=== PATIENT | female | born 1960 | race African-American/Black ===

== ENCOUNTER 2017-08-15 10:47 | Day surgery (SDC) | payer OTHER ==
[2017-08-13 16:26] VITALS: BMI 30.9
--- NOTE | 2017-08-15 12:10 | HP ---
Satellite [facility] - Chief Complaint Chief Complaint: right shoulder pain - Past Medical History Allergies/Adverse Reactions: Allergies Allergy/AdvReac Type Severity Reaction Status Date / Time No Known Allergies Allergy Verified 08/15/17 11:10 ...LMP: 08/23/15 ...LMP Comment: 06/2016 - Current Medications Current Medications: Home Medications Medication Instructions Recorded Albuterol Sulfate [Proair Hfa -] 1 - 2 inh PO PRN PRN 09/08/15 Metformin HCl [Glucophage] 1,000 mg PO DAILY 09/08/15 Albuterol Sulfate [Proair 90 mcg IH PRN PRN 08/13/17 Respiclick] Metoprolol Succinate [Toprol Xl] 100 mg PO DAILY 08/13/17 Sitagliptin Phosphate [Januvia] 100 mg PO DAILY 08/13/17 Hydrocodone/Acetaminophen [[place] 1 each PO Q6H PRN #40 tablet MDD 4 08/15/17 5-325 Tablet] Telmisartan/Hydrochlorothiazid 1 each PO DAILY 08/15/17 [Micardis Hct 80-25 mg Tablet] Satellite Physical Exam - Physical Examination Vital Signs: Vital Signs Period Temp Pulse Resp BP Sys/Jarrett Pulse Ox Last 24 Hr 97.3 F 87 16 141/91 99 General Appearance: Well Nourished, Well Developed, Alert & Oriented x3 ENT: Clear Lung: Normal air movement Heart: Regular rate & rhythm Extremities: Other (right shoulder- + ttp ,decr rom, + empty can, + neer, + bradley, nvi MRI + rct) Neurological: Intact, Alert, Oriented Satellite Impression/Plan - Impression/Plan Impression: right shoulder rct Operative Procedure: right shoulder arthroscopy with SAD and possible RCR Date to be Performed: 08/15/17
[2017-08-15] MEDS ORDERED: ROPIVACAINE HCL 0.5% 30ML VIAL ONE (13:20)
[2017-08-15] MEDS ORDERED: MIDAZOLAM HCL 2 MG/2 ML SINGLE DOSE VIAL ONE ×3 (13:25→14:38)
[2017-08-15] MEDS ORDERED: PROPOFOL 20 ML ONE (14:38)
[2017-08-15] MEDS ORDERED: ceFAZolin SODIUM 1 GM VIAL IVPB ONE (14:45)
[2017-08-15] MEDS ORDERED: ceFAZolin SODIUM 1 GM VIAL ONE (14:58)
--- NOTE | 2017-08-15 16:10 | OP ---
Operative Note - Note: Operative Date: 08/15/17 ([facility]) Pre-Operative Diagnosis: right shoulder rct Operation: right shoulder arthroscopy with RCR, SAD Implants: 2 arthrex swivelocks Post-Operative Diagnosis: Same as Pre-op Surgeon: Nasim Marquis Spanish Interpreter/Translator: Bradley De Guzman Anesthesiologist/ORAL SURGERY TECHNICIAN: Miguel Angel Cardona Anesthesia: General, Local Specimens Removed: shavings Estimated Blood Loss (mls): 5 Operative Report Dictated: Yes
[2017-08-15] MEDS ORDERED: oxyCODONE HCL 5 MG TABLET PO PRN (16:56)
[2017-08-15] MEDS ORDERED: PROMETHAZINE HCL 25 MG/1 ML VIAL IVPUSH PRN (16:56)
[2017-08-15] MEDS ORDERED: ONDANSETRON 4 MG/2 ML VIAL IVPUSH PRN (16:56)
[2017-08-15] MEDS ORDERED: LACTATED RINGERS SOLUTION 1,000 ML IV SCH (17:00)
[2017-08-15 17:33] VITALS: BP 141/76; PULSE 76
[2017-08-15 17:34] VITALS: TEMP 97.6
--- NOTE | 2017-08-16 07:23 | OP ---
DATE OF OPERATION: 08/15/2017 PREOPERATIVE DIAGNOSES: Right shoulder impingement syndrome and rotator cuff tear. POSTOPERATIVE DIAGNOSES: Right shoulder impingement syndrome and rotator cuff tear. PROCEDURE: Right shoulder arthroscopy, subacromial decompression and arthroscopic rotator cuff repair. SURGEON: Nasim Marquis MD FACS TEACHER: ABDULLAHI Dominique ANESTHESIOLOGIST: Miguel Angel Cardona MD ANESTHESIA: Right interscalene block and LMA anesthesia. DRAINS: None. COMPLICATIONS: None. FLUID REPLACEMENT: 1000 mL. SPECIMEN: Arthroscopic shavings. BLOOD LOSS: Minimal. BLOOD GIVEN: None. This patient is a 56-year-old female with the preoperative diagnoses of right shoulder impingement syndrome and rotator cuff tear. After understanding the potential risks, complications, alternatives and benefits of surgical versus nonsurgical treatment, the patient elected to undergo this procedure. Patient was brought to the operating room, peripheral IV was placed and IV sedation given. Ancef 1 g IV was given. LMA anesthesia was induced. She was placed into the beach-chair position with ample padding throughout. The right upper extremity was prepped and draped in sterile fashion. The bony landmarks were marked out with a marking pen and the posterior portal established. Diagnostic arthroscopy was performed. The glenohumeral joint looked good. There was no arthritis. The labrum looked good. The biceps tendon looked good and the undersurface of the rotator cuff looked good. Next, our attention turned to the subacromial space. Patient had an unbelievable amount of subacromial inflammatory bursitis. An extensive debridement was done with the ArthroCare wand and a shaver. This revealed a large-sized subacromial spur and a small distal clavicle spur. Both were removed with a 5.5-mm oval bur and the debris removed with the shaver. The acromioplasty was fine tuned with the shaver. Overall, this created a lot of space and once the bursectomy was completed this revealed a complete full-thickness tear of the rotator cuff. It was relatively small, about 2 inches in the AP plane, and crescent shaped. The landing bed was debrided with the shaver. Arthroscopically, the [employer] needle passer was used to pass 2 FiberTapes. They were put down through 2 Arthrex SwiveLocks and arthroscopically the rotator cuff repair was completed. It came down quite nicely. There were 2 FiberTapes in a horizontal mattress in place for 4 points of fixation that moved as a unit with the humerus and overall it looked quite good. The area was copiously irrigated and washed out and portals closed with 3-0 nylon suture and covered with Aquacel. The patient was placed into a shoulder immobilizer. Total operative time was about 50 minutes. The patient was extubated. There were no complications during the case. The patient tolerated the procedure well and was brought to ambulatory recovery in stable condition. William [id number]
--- NOTE | 2017-08-22 17:15 | PATH ---
Surgical Pathology Report Patient Name: JR ANDUJAR [facility]. Rec. #: [id number] /Age/Gender: 1960 (Age: 56) / F Account: [id number] Location: [facility] SURGICAL Taken: 08/15/2017 Received: 08/16/2017 Reported: 08/22/2017 Physicians: Nasim Marquis M.D. Specimen(s) Received SHAVINGS RIGHT SHOULDER Clinical History Right shoulder impingement syndrome Final Diagnosis SHOULDER, RIGHT, ARTHROSCOPIC SHAVINGS: FIBROSYNOVIAL TISSUE, CARTILAGE, BONE AND SKELETAL MUSCLE. Electronically Signed Rachana aClvert M.D. Gross Description Received in formalin, labeled "right shoulder shavings," is a 4.5 x 4.0 x 0.4 cm. aggregate of santos-yellow soft tissue fragments. A international sales representative portion is submitted in one cassette. 08/16/201708/16/2017
== END 2017-08-15 18:58 | disposition home or self-care (01) ==
LOC: JASU-SURG 10:47
PROVIDERS: ATTEND Orthopaedic Surgery
PROC: 0LQ14ZZ Repair Right Shoulder Tendon, Percutaneous Endoscopic Approach (ICD-10-PCS; principal; 2017-08-15 13:00)
PROC: 0RNJ4ZZ Release Right Shoulder Joint, Percutaneous Endoscopic Approach (ICD-10-PCS; 2017-08-15 13:00)
DX: M75.41 Impingement syndrome of right shoulder (principal); M75.101 Unspecified rotator cuff tear or rupture of right shoulder, not specified as traumatic
CPT/HCPCS: 82962; 88304-TC; 94760

== ENCOUNTER 2018-07-10 23:15 | Emergency (ER) | payer OTHER ==
[2018-07-10 23:19] VITALS: BP 180/90; PULSE 90; TEMP 98.3; BMI 31.7
--- NOTE | 2018-07-10 23:53 | PDOC ---
History of Present Illness - General Chief Complaint: Pain, Acute Stated Complaint: LEFT FOOT PAIN Time Seen by Provider: 07/10/18 23:52 History Source: Patient Exam Limitations: No Limitations - History of Present Illness Initial Comments: 07/10/18 23:54 57YOF with h/o HTN, HLD, NIDDM (on metformin), and diabetic neuropathy who p/w left foot pain and new onset inability to bear weight since 2 pm (about the past 10 hours). She describes the pain as sharp and shooting, like her prior diabetic neuropathy, and it is located on the top of the left foot. She has had similar pain before but it usually goes away within a couple of hours. This pain has been constant since 2 pm despite taking 800 mg ibuprofen at 6 pm. 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 She is concerned that she cannot go to work if she is unable to bear weight. Denies f/c/n/v/d/c, chest pain, SOB, abdominal pain, back pain, neck pain, HUERTA, lightheadedness, dizziness, new n/t/w (though does struggle with chronic tingling and numbness in the BLE). Denies any recent falls or injuries. Past History - Past Medical History Allergies/Adverse Reactions: Allergies Allergy/AdvReac Type Severity Reaction Status Date / Time No Known Allergies Allergy Verified 07/10/18 23:19 Home Medications: Ambulatory Orders Albuterol Sulfate [Proair Hfa -] 1 - 2 inh PO PRN PRN 09/08/15 Metformin HCl [Glucophage] 1,000 mg PO DAILY 09/08/15 Albuterol Sulfate [Proair Respiclick] 90 mcg IH PRN PRN 08/13/17 Metoprolol Succinate [Toprol Xl] 100 mg PO DAILY 08/13/17 Sitagliptin Phosphate [Januvia] 100 mg PO DAILY 08/13/17 Hydrocodone/Acetaminophen [[place] 5-325 Tablet] 1 each PO Q6H PRN #40 tablet MDD 4 08/15/17 Telmisartan/Hydrochlorothiazid [Micardis Hct 80-25 mg Tablet] 1 each PO DAILY Anemia: No Asthma: No Cancer: No Cardiac Disorders: No CVA: No COPD: No CHF: No Dementia: No Diabetes: Yes GI Disorders: No Disorders: No HTN: Yes Hypercholesterolemia: Yes Liver Disease: No Seizures: No Thyroid Disease: No - Surgical History Abdominal Surgery: Yes (HERNIA) Appendectomy: No Cardiac Surgery: No Cholecystectomy: No Lung Surgery: No Neurologic Surgery: No Orthopedic Surgery: Yes (wrist 2016) - Immunization History Immunization Up to Date: Yes - Suicide/Smoking/Psychosocial Hx Smoking Status: No Smoking History: Never smoked Have you smoked in the past 12 months: No Number of Cigarettes Smoked Daily: 0 Information on smoking cessation initiated: No Hx Alcohol Use: No Drug/Substance Use Hx: No Substance Use Type: None Review of Systems - Review of Systems Able to Perform ROS?: Yes Comments:: 07/11/18 00:10 GEN: no fever, chills, malaise, generalized weakness, or weight change HEENT: no ear pain, sore throat, vision change, or eye pain CV: no chest pain, palpitations, lightheadedness, syncope, or edema RESP: no cough, wheezing, or SOB GI: no abdominal pain, nausea, vomiting, diarrhea, constipation, or white/black/ bloody stool : no dysuria, hematuria, incontinence, retention, bleeding, or discharge MSK: left foot pain, inability to walk, otherwise no neck/back pain, muscle weakness/pain, or joint swelling/pain NEURO: no headache, seizure, vertigo, numbness, tingling, or focal weakness PSYCH: no substance use, no behavior change SKIN: no jaundice, no rash ROS otherwise negative except as noted in HPI *Physical Exam - Vital Signs Last Vital Signs Temp Pulse Resp BP Pulse Ox 98.3 F 90 20 180/90 H 99 07/10/18 23:16 07/10/18 23:16 07/10/18 23:16 07/10/18 23:16 07/10/18 23:16 - Physical Exam Comments: 07/11/18 00:21 GENERAL: well-appearing, A/Ox4, no distress, answers questions appropriately, generally comfortable appearing but winces occasionally with repositioning of the left foot HEENT: PERRLA, EOMI, moist mucous membranes NECK/BACK: no midline ttp, no spinal stepoff or deformity, no hematoma, full ROM , neck supple CARDIOVASCULAR: regular rate/rhythm, normal S1S2, no MGR, strong peripheral pulses, capillary refill <2 seconds, extremities wwp, no edema LUNGS/RESPIRATORY: no respiratory distress, CTAB GI/ABDOMEN: symmetric psfc-vw-vllc, normoactive BS, soft, no ttp, no midline pulsatile masses : no CVA tenderness EXTREMITIES: no muscle atrophy, no acute deformity, no edema, no palpable cords BLE, no calf ttp or swelling, left foot DP pulse intact and 2+, no tenderness to light palpation of the foot dorsum, no additional ttp of the foot, ankle, or distal lower leg, mild decreased sensation to all LLE digits, motor intact, full ROM foot and ankle SKIN: warm and dry, no pallor, no jaundice, no rash, no bruising, no skin breakdown, no cuts, no lesions NEUROLOGICAL: GCS 15, CN II-XII grossly intact, 5/5 strength proximally and distally, no facial droop, decreased BLE sensation of digits Moderate Sedation - Procedure Monitoring Vital Signs: Procedure Monitoring Vital Signs Temperature 98.3 F 07/10/18 23:16 Pulse Rate 90 07/10/18 23:16 Respiratory Rate 20 07/10/18 23:16 Blood Pressure 180/90 H 07/10/18 23:16 O2 Sat by Pulse Oximetry (%) 99 07/10/18 23:16 Medical Decision Making - Medical Decision Making 07/11/18 00:31 Pt p/w foot pain worsening since an injury to the area. Initial Vital Signs Temp Pulse Resp BP Pulse Ox 98.3 F 90 20 180/90 H 99 07/10/18 23:16 07/10/18 23:16 07/10/18 23:16 07/10/18 23:16 07/10/18 23:16 Exam: See Physical Exam section for full exam; pain in malleolar zone, tenderness edge of lateral and medial malleolus, inability to walk 4 steps for exam. DDX IBNLT: most likely neuropathic pain (e.g. diabetic neuropathy), less likely sprain/strain given lack of any mechanism of injury, very unlikely any of the following: contusion, blood vessel injury, nerve injury, foot fracture/ dislocation, tendon or ligament rupture/tear, etc. Also very unlikely DVT given lack of palpable cord, leg tenderness or swelling, lack of exogenous hormones, etc. W/U ordered: None at this time TX ordered: Tylenol, gabapentin 07/11/18 01:39 Patient ambulated to the bathroom with cane, no issues but ambulating slowly. States still has pain, ordered is 30 mg Toradol IM. She is on her feet all the time at work, possible stress fxr, ordered is foot XR. 07/11/18 02:52 Foot XR without any obvious acute abnormality. DISCHARGE Patient is instructed to use RICE therapy and OTC analgesics. Workup is not concerning for emergency-level pathology at this time. The Pt is appropriate for discharge with close outpatient follow up. They are comfortable with this plan and will follow up with their primary care provider in 1-3 days. Orthopedist referral information is given for her ortho provider (Dr. Marquis). Specific return precautions are discussed and they will come back to the ER if necessary. *DC/Admit/Observation/Transfer Diagnosis at time of Disposition: Foot pain, left - Discharge Dispostion Condition at time of disposition: Stable Decision to Admit order: No - Referrals Referrals: Mireya Cook MD [Primary Care Provider] - Nasim Marquis MD [Staff Physician] - - Patient Instructions Printed Discharge Instructions: DI for Foot Pain Additional Instructions: You were seen in the ER for foot pain. We did an exam and imaging studies, and found no abnormalities with the bones. We gave you medications for the pain. After our assessment, we do not believe you are having a medical emergency at this time, and we believe you are safe to go home. Please follow up with your primary care provider in 1-3 days. Call their clinic, tell them you were seen in the ER, and tell them you need a follow-up. We are also providing information for your orthopedist, Dr. Marquis, in case you need to contact him. If you have any new or worsening symptoms (especially worsening foot pain, inability to walk with a cane, skin changes, etc) please come back to the ER at any time (24 hours a day). If you are having severe or life threatening symptoms , or symptoms that make it unsafe to drive or have someone drive you, please call 911. Follow up with your PCP by Sunday this week. Take Tylenol and Motrin for the pain. Use RICE therapy (rest, ice, compression, elevation). Use your cane as needed to walk. - Post Discharge Activity Forms/Work/School Notes: Back to Work
[2018-07-11] MEDS ORDERED: ACETAMINOPHEN 500 MG TABLET (FP) PO ONE (00:17)
[2018-07-11] MEDS ORDERED: GABAPENTIN 300 MG CAPSULE (FP) PO ONE (00:17)
--- NOTE | 2018-07-11 00:59 | PDOC ---
Attending Attestation - Resident Resident Name: JefeDaylin - ED Attending Attestation I have performed the following: I have examined & evaluated the patient, The case was reviewed & discussed with the resident, I agree w/resident's findings & plan, Exceptions are as noted - HPI HPI: 07/11/18 01:00 57F pmh DM c/b neuropathy, HTN, HLD here with acute exacerbation of her neuropathic px. Pt states that it is usually episodic with spontaneous improvement of pain. Today, the px has been persistent and causing difficulty with ambulation. Character of the px is o/w same as prior episodes. - Physicial Exam PE: 07/11/18 01:02 Agree with exam as documented by resident - Medical Decision Making 07/11/18 01:02 No hx or exam findings consistent with trauma, infectious etiology unlikely, no s/sx of clot consistent with neuropathic px f/u analgesia 07/11/18 03:30 Pain improved after tx dc with pcp f/u
[2018-07-11] MEDS ORDERED: KETOROLAC TROMETHAMINE 30 MG/1 ML VIAL IM ONE (01:39)
[2018-07-11] MEDS ORDERED: ACETAMINOPHEN 325 MG TABLET (FP) ONE (02:04)
[2018-07-11] MEDS ORDERED: GABAPENTIN 100 MG CAPSULE (FP) ONE (02:04)
[2018-07-11] MEDS ORDERED: KETOROLAC TROMETHAMINE 30 MG/1 ML VIAL ONE (02:04)
== END 2018-07-11 03:19 | disposition home or self-care (01) ==
LOC: JER 23:15
PROC: 3E0233Z Introduction of Anti-inflammatory into Muscle, Percutaneous Approach (ICD-10-PCS; principal; 2018-07-10)
DX: M79.2 Neuralgia and neuritis, unspecified (principal); E11.40 Type 2 diabetes mellitus with diabetic neuropathy, unspecified; Z79.84 Long term (current) use of oral hypoglycemic drugs; I10 Essential (primary) hypertension; E78.5 Hyperlipidemia, unspecified
CPT/HCPCS: 73630-TC-LT; 99281-25

== ENCOUNTER 2019-01-22 23:08 | Emergency (ER) | payer OTHER ==
[2019-01-22 23:18] VITALS: BP 140/77; PULSE 100; TEMP 100.5; BMI 30.9
[2019-01-22] MEDS ORDERED: ACETAMINOPHEN 325 MG TABLET (FP) PO ONE (23:29)
[2019-01-22] MEDS ORDERED: ACETAMINOPHEN 325 MG TABLET (FP) ONE (23:44)
--- NOTE | 2019-01-22 23:48 | PDOC ---
History of Present Illness - General Chief Complaint: Cold Symptoms Stated Complaint: SORE THROAT Time Seen by Provider: 01/22/19 23:20 History Source: Patient Exam Limitations: No Limitations Past History - Past Medical History Allergies/Adverse Reactions: Allergies Allergy/AdvReac Type Severity Reaction Status Date / Time No Known Allergies Allergy Verified 07/10/18 23:19 Home Medications: Ambulatory Orders Albuterol Sulfate [Proair Hfa -] 1 - 2 inh PO PRN PRN 09/08/15 Metformin HCl [Glucophage] 1,000 mg PO DAILY 09/08/15 Albuterol Sulfate [Proair Respiclick] 90 mcg IH PRN PRN 08/13/17 Metoprolol Succinate [Toprol Xl] 100 mg PO DAILY 08/13/17 Sitagliptin Phosphate [Januvia] 100 mg PO DAILY 08/13/17 Hydrocodone/Acetaminophen [[place] 5-325 Tablet] 1 each PO Q6H PRN #40 tablet MDD 4 08/15/17 Telmisartan/Hydrochlorothiazid [Micardis Hct 80-25 mg Tablet] 1 each PO DAILY Anemia: No Asthma: No Cancer: No Cardiac Disorders: No CVA: No COPD: No CHF: No Dementia: No Diabetes: Yes GI Disorders: No Disorders: No HTN: Yes Hypercholesterolemia: Yes Liver Disease: No Seizures: No Thyroid Disease: No - Surgical History Abdominal Surgery: Yes (HERNIA) Appendectomy: No Cardiac Surgery: No Cholecystectomy: No Lung Surgery: No Neurologic Surgery: No Orthopedic Surgery: Yes (2015) - Immunization History Immunization Up to Date: Yes - Suicide/Smoking/Psychosocial Hx Smoking Status: No Smoking History: Unknown if ever smoked Have you smoked in the past 12 months: No Number of Cigarettes Smoked Daily: 0 Information on smoking cessation initiated: No Hx Alcohol Use: No Drug/Substance Use Hx: No Substance Use Type: None *Physical Exam - Vital Signs Last Vital Signs Temp Pulse Resp BP Pulse Ox 100.5 F H 100 H 16 140/77 100 01/22/19 23:16 01/22/19 23:16 01/22/19 23:16 01/22/19 23:16 01/22/19 23:16 - Physical Exam General Appearance: No: Apparent Distress HEENT: positive: Normal ENT Inspection, Pharynx Normal Respiratory/Chest: positive: Lungs Clear, Normal Breath Sounds. negative: Respiratory Distress Cardiovascular: positive: Regular Rhythm, Regular Rate, S1, S2. negative: Murmur Gastrointestinal/Abdominal: positive: Normal Bowel Sounds, Soft. negative: Tender, Distended, Guarding, Rebound Integumentary: positive: Normal Color Neurologic: positive: Alert, Normal Mood/Affect ED Treatment Course - RADIOLOGY Radiology Studies Ordered: Category Date Time Status CHEST PA & LAT [RAD] Stat Radiology 01/22/19 23:30 Ordered - Medications Given in the ED: ED Medications Discontinued Medications Generic Name Dose Route Start Last Admin Trade Name Freq PRN Reason Stop Dose Admin Acetaminophen 975 mg 01/22/19 23:29 01/22/19 23:46 Tylenol - PO 01/22/19 23:30 975 mg ONCE ONE Administration Medical Decision Making - Medical Decision Making 58 y/o F hx of HTN, HLD, DM presents with fever, chills, body aches, sore throat , productive cough, rhinorrhea and congestion from yesterday. 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 Denies recent travel. Has not taken anything for fever yet. Denies sob, cp, abd pain, n/v/d, urinary complaints. Consider viral URI vs PNA No concern for strep pharyngitis based on exam Plan: Tylenol, CXR 01/22/19 23:47 CXR negative with no evidence of PNA Likely viral URI Repeat temp 99.1 01/23/19 00:21 *DC/Admit/Observation/Transfer Diagnosis at time of Disposition: Viral URI - Discharge Dispostion Disposition: HOME Condition at time of disposition: Stable Decision to Admit order: No - Referrals Referrals: Mireya Cook MD [Primary Care Provider] - 2 Days - Patient Instructions Printed Discharge Instructions: DI for Viral Upper Respiratory Infection -- Adult Additional Instructions: Thank you for choosing [facility]. It was a pleasure taking care of you. Your chest xray was normal Take Tylenol or Motrin as needed for fever Follow-up with your doctor in 2 days Return to the Emergency Department if your symptoms worsen or persist or have other concerning symptoms. - Post Discharge Activity
--- NOTE | 2019-01-22 23:50 | PDOC ---
*Physical Exam - Vital Signs Last Vital Signs Temp Pulse Resp BP Pulse Ox 100.5 F H 100 H 16 140/77 100 01/22/19 23:16 01/22/19 23:16 01/22/19 23:16 01/22/19 23:16 01/22/19 23:16 ED Treatment Course - Medications Given in the ED: ED Medications Discontinued Medications Generic Name Dose Route Start Last Admin Trade Name [place] PRN Reason Stop Dose Admin Acetaminophen 975 mg 01/22/19 23:29 01/22/19 23:46 Tylenol - PO 01/22/19 23:30 975 mg ONCE ONE Administration Medical Decision Making - Medical Decision Making 01/22/19 23:50 Patient seen by the advanced practice provider under my direct supervision. Ancillary testing reviewed as necessary. I agree with plan as outlined by the advanced practice provider. *DC/Admit/Observation/Transfer Diagnosis at time of Disposition: Viral URI - Discharge Dispostion Disposition: HOME Condition at time of disposition: Stable - Referrals Referrals: Mireya Cook MD [Primary Care Provider] - 2 Days - Patient Instructions Printed Discharge Instructions: DI for Viral Upper Respiratory Infection -- Adult Additional Instructions: Thank you for choosing [facility]. It was a pleasure taking care of you. Your chest xray was normal Take Tylenol or Motrin as needed for fever Follow-up with your doctor in 2 days Return to the Emergency Department if your symptoms worsen or persist or have other concerning symptoms. - Post Discharge Activity Forms/Work/School Notes: Back to Work
== END 2019-01-23 00:30 | disposition home or self-care (01) ==
LOC: JER 23:08
DX: J06.9 Acute upper respiratory infection, unspecified (principal); I10 Essential (primary) hypertension; E78.5 Hyperlipidemia, unspecified; E11.9 Type 2 diabetes mellitus without complications
CPT/HCPCS: 71046-TC-FY; 99281-25

== ENCOUNTER 2021-01-06 12:15 | Emergency (ER) | payer OTHER ==
[2021-01-06 12:31] VITALS: BP 148/87; PULSE 78; TEMP 98.2; BMI 32.4
[2021-01-06] MEDS ORDERED: DIPHTH,PERTUSS(ACELL),TET 0.5 ML DISP.SYRIN IM ONE ×2 (12:56→12:59)
[2021-01-06] MEDS ORDERED: IBUPROFEN 600 MG TABLET (FP) PO ONE ×2 (12:56→12:58)
== END 2021-01-06 14:00 | disposition home or self-care (01) ==
LOC: JERFT 12:15
PROC: 3E0234Z Introduction of Serum, Toxoid and Vaccine into Muscle, Percutaneous Approach (ICD-10-PCS; principal; 2021-01-06)
DX: M25.512 Pain in left shoulder (principal); M25.562 Pain in left knee; M79.675 Pain in left toe(s)
CPT/HCPCS: 73030-TC-LT-FY; 73562-TC-LT-FY; 73630-TC-LT; 90715; 99284-25

== ENCOUNTER 2021-02-26 21:16 | Emergency (ER) | payer OTHER ==
[2021-02-26 21:21] VITALS: BP 166/97; TEMP 98.5; BMI 30.9
[2021-02-26 21:22] VITALS: PULSE 81
[2021-02-26] MEDS ORDERED: IBUPROFEN 600 MG TABLET (FP) PO ONE ×2 (22:43→22:48)
== END 2021-02-26 22:53 | disposition home or self-care (01) ==
LOC: JERFT 21:16
DX: M25.562 Pain in left knee (principal); W01.0XXA Fall on same level from slipping, tripping and stumbling without subsequent striking against object, initial encounter; Y04.0XXA Assault by unarmed brawl or fight, initial encounter; Y92.10 Unspecified residential institution as the place of occurrence of the external cause
CPT/HCPCS: 73562-TC-LT-FY; 99283-25

== ENCOUNTER 2022-07-14 16:40 | Emergency (ER) | payer OTHER ==
[2022-07-14 16:50] VITALS: BP 137/75; PULSE 116; RESP 18; TEMP 101.6; BMI 30.9
[2022-07-14] MEDS ORDERED: ACETAMINOPHEN 500 MG TABLET (FP) PO ONE (16:50)
== END 2022-07-14 18:47 | disposition home or self-care (01) ==
LOC: JER 16:40
DX: J06.9 Acute upper respiratory infection, unspecified (principal)
CPT/HCPCS: 0241U-QW; 99283-25

== ENCOUNTER 2022-07-22 21:46 | Emergency (ER) | payer OTHER ==
[2022-07-22 22:06] VITALS: BP 143/84; PULSE 80; RESP 18; TEMP 99.9; BMI 30.9
[2022-07-22] MEDS ORDERED: SODIUM CHLORIDE 0.9% 500 ML INFUS.BAG IV ONE (22:32)
[2022-07-22] MEDS ORDERED: ONDANSETRON 4 MG/2 ML VIAL IVPB ONE (22:32)
[2022-07-22] MEDS ORDERED: DEXAMETHASONE SOD PHOSPHATE 20 MG/5 ML VIAL IVPB ONE (22:32)
[2022-07-22] MEDS ORDERED: ACETAMINOPHEN 1000 MG/100 ML BAG IVPB ONE (22:34)
[2022-07-22] MEDS ORDERED: ACETAMINOPHEN INJECTION 100 ML IVPB ONE (22:35)
[2022-07-22] MEDS ORDERED: DEXAMETHASONE SOD PHOSPHATE 10 MG/1 ML VIAL ONE (22:35)
[2022-07-22] MEDS ORDERED: ONDANSETRON 4 MG/2 ML VIAL ONE (22:35)
[2022-07-22] MEDS: ALBUTEROL SO4 2.5/IPRATROPIUM 0.5 INH SOL 3 ML VIAL.NEB. NEB SCH ×2 (22:42→22:57)
[2022-07-22 23:00] LABS: BASO % 1.3 % (0-2.0); EOS % 1.2 % (0-4.5); HEMATOCRIT 39.4 % (32.4-45.2); HEMOGLOBIN 12.8 GM/dL (10.7-15.3); LYMPH % 43.2 % (8-40); MCH 29.7 pg (25.7-33.7); MCHC 32.6 g/dl (32.0-36.0); MEAN CELL VOLUME 91.1 fl (80-96); MEAN PLT VOLUME 7.8 fl (7.5-11.1); MONO % 10.5 % (3.8-10.2); NEUT % 43.8 % (42.8-82.8); PLATELET COUNT 414 10^3/uL (134-434); RBC 4.32 M/mm3 (3.60-5.2); RDW 13.9 % (11.6-15.6); WHITE BLOOD COUNT 4.9 K/mm3 (4.0-10.0)
[2022-07-22 23:35] LABS: ALBUMIN 3.4 g/dl (3.4-5.0); CALCIUM 9.5 mg/dL (8.5-10.1)
[2022-07-22 23:36] LABS: BLOOD UREA NITROGEN 13.5 mg/dL (7-18)
[2022-07-22 23:39] LABS: CREATININE 0.9 mg/dL (0.55-1.3)
[2022-07-22 23:40] LABS: BILIRUBIN,TOTAL 0.4 mg/dL (0.2-1); TOT PROT 7.5 g/dl (6.4-8.2)
[2022-07-23] MEDS ORDERED: guaiFENesin/D-METHORPHAN HB 10 ML UNIT-DOSE CUPS PO ONE (01:45)
[2022-07-23] MEDS ORDERED: guaiFENesin/D-METHORPHAN HB 10 ML UNIT-DOSE CUPS ONE (01:48)
== END 2022-07-23 01:53 | disposition home or self-care (01) ==
LOC: JER 21:46
PROC: 3E033GC Introduction of Other Therapeutic Substance into Peripheral Vein, Percutaneous Approach (ICD-10-PCS; principal; 2022-07-22)
PROC: 3E0F7GC Introduction of Other Therapeutic Substance into Respiratory Tract, Via Natural or Artificial Opening (ICD-10-PCS; 2022-07-22)
DX: J09.X2 Influenza due to identified novel influenza A virus with other respiratory manifestations (principal)
CPT/HCPCS: 36415; 71045-TC-FY; 80053; 85025; 99284-25